=== PATIENT | female | born 2000 | race African-American/Black ===

== ENCOUNTER 2021-07-07 22:19 | Emergency (ER) | payer MEDICAID ==
[~2021-07-07] VITALS: Ht 160 cm; Wt 85.3 kg
[2021-07-08] MEDS ORDERED: AMOXICILLIN/CLAVULANATE K 875 MG TAB PO STA (01:14)
[2021-07-08] MEDS ORDERED: IBUPROFEN 600 MG TAB PO STA (01:14)
[2021-07-08] MEDS ORDERED: CEPHALEXIN500 MG PO (01:21)
[2021-07-08] MEDS ORDERED: IBUPROFEN600 MG PO (01:22)
[2021-07-08] MEDS ORDERED: ULTRAM 50MG50 MG PO (01:26)
[2021-07-08 01:38] VITALS: BP 123/74
== END 2021-07-08 01:38 | disposition home or self-care (01) ==
LOC: FSED 23:35
DX: L73.2 Hidradenitis suppurativa (principal); Z86.16 Personal history of COVID-19
CPT/HCPCS: 10060; 23931; 99283